=== PATIENT | female | born 2000 | race African-American/Black ===

== ENCOUNTER 2023-04-27 07:13 | Emergency (ER) | payer MEDICAID, OTHER ==
[~2023-04-27] VITALS: Ht 165.1 cm; Wt 63.0 kg
[~2023-04-27 07:13] MED LIST: IBUP-1525 MT; TOPUD MT
[2023-04-27 07:25] VITALS: BP 160/101; PULSE 116; RESP 20; TEMP 98.1; O2SAT 100
[2023-04-27 08:25] LABS: CLARITY URINE CLEAR (CLEAR); COLOR URINE YELLOW (YELLOW); GLUCOSE URINE NEGATIVE (NEGATIVE); KETONES URINE NEGATIVE (NEGATIVE); LEUKOCYTE ESTERASE URINE NEGATIVE (NEGATIVE); NITRITE URINE NEGATIVE (NEGATIVE); OCCULT BLOOD URINE 2+ (NEGATIVE); PROTEIN URINE NEGATIVE (NEGATIVE); SPECIFIC GRAVITY URINE 1.013 (1.005-1.030)
[2023-04-27] MEDS ORDERED: CEFTRIAXONE SODIUM 500 MG/VIAL IM ONE (08:45)
[2023-04-27] MEDS ORDERED: DOXY100C5 MT (08:52)
[2023-04-27 09:19] LABS: MUCUS URINE 2+ /lpf (< = 2+); SQUAMOUS EPITHELIAL CELL URINE 1+ /lpf (RARE/1+)
[2023-04-27 09:20] LABS: BACTERIA URINE TRACE; RBC URINE 0-2 /hpf (0-2); WBC URINE 0-2 /hpf (0-2)
== END 2023-04-27 09:38 | disposition home or self-care (01) ==
LOC: ER 07:43
DX: Z20.2 Contact with and (suspected) exposure to infections with a predominantly sexual mode of transmission (principal)
CPT/HCPCS: 99283; 81003; 81025; 96372; J0696

== ENCOUNTER 2023-06-05 14:37 | Emergency (ER) | payer MEDICAID ==
[~2023-06-05] VITALS: Ht 157.5 cm; Wt 65.0 kg
[~2023-06-05 14:37] MED LIST changes: +DOXY100C5 MT
[2023-06-05 14:41] VITALS: BP 109/64; TEMP 98.1; O2SAT 100
[2023-06-05] MEDS: FAMOTIDINE 20MG TABLET PO ONE (15:48)
[2023-06-05] MEDS: MAGNESIUM/ALUMINUM HYDROXIDE/SIMETHICONE 30ML UDC PO STA (15:48)
[2023-06-05] MEDS: ONDANSETRON 4MG ODT PO STA (15:48)
[2023-06-05 16:05] LABS: BASOPHILS % 0.8 % (0.0-2.0); HEMATOCRIT. 26.7 % (36.0-48.0); HEMOGLOBIN. 7.9 g/dL (12.0-16.0); LYMPHOCYTES % 10.8 % (20.0-50.0); MEAN CORPUSCULAR HEMOGLOBIN 18.9 pg (28.0-32.0); MEAN CORPUSCULAR HGB CONC 29.5 g/dL (31.0-37.0); MEAN CORPUSCULAR VOLUME 64.1 fL (81.0-99.0); MONOCYTES % 5.3 % (2.0-8.0); NEUTROPHILS % 83.1 % (40.0-76.0); PLATELET 301 x1000/uL (130-400); RED BLOOD CELL COUNT 4.17 mill/uL (4.2-5.4); RED CELL DISTRIBUTION WIDTH 19.4 % (11.6-14.6); WHITE BLOOD COUNT 7.3 x1000/uL (4.5-11.0)
[2023-06-05 16:10] LABS: ADD RBC MORPHOLOGY YES; ALANINE AMINOTRANSFERASE 20 IU/L (10-49); ALBUMIN 4.7 g/dL (3.2-4.8); ASPARTATE AMINOTRANSFERASE 63 IU/L (<34); BILIRUBIN TOTAL 0.5 mg/dL (0.1-1.0); CALCIUM 8.6 mg/dL (8.7-10.4); CARBON DIOXIDE 23 mEq/L (21-32); CHLORIDE 106 mEq/L (98-107); CREATININE 0.7 mg/dL (0.6-1.0); DIFFERENTIAL COMMENT 1; GLUCOSE 81 mg/dL (70-105); POTASSIUM 3.1 mEq/L (3.5-5.1); PROTEIN TOTAL 8.2 g/dL (6.0-8.3); SODIUM 139 mEq/L (136-145); UREA NITROGEN BLOOD 5 mg/dL (9-23)
[2023-06-05 16:17] LABS: HCG SCREEN NEGATIVE
[2023-06-05] MEDS: POTASSIUM CHLORIDE 20MEQ/PACKET PO ONE (16:33)
[2023-06-05 16:41] LABS: ANISOCYTOSIS 2+; HYPOCHROMASIA 3+; MICROCYTOSIS 3+; PLATELET ESTIMATE NORMAL
[2023-06-05 19:03] LABS: CLARITY URINE CLEAR (CLEAR); COLOR URINE YELLOW (YELLOW); GLUCOSE URINE NEGATIVE (NEGATIVE); KETONES URINE NEGATIVE (NEGATIVE); LEUKOCYTE ESTERASE URINE NEGATIVE (NEGATIVE); NITRITE URINE NEGATIVE (NEGATIVE); OCCULT BLOOD URINE TRACE (NEGATIVE); PH URINE 5.5 (4.5-8.0); PROTEIN URINE TRACE (NEGATIVE); SPECIFIC GRAVITY URINE 1.025 (1.005-1.030)
[2023-06-05 19:19] LABS: BACTERIA URINE NONE SEEN; RBC URINE 0-2 /hpf (0-2); SQUAMOUS EPITHELIAL CELL URINE RARE /lpf (RARE/1+); WBC URINE 0-2 /hpf (0-2)
[2023-06-05] MEDS ORDERED: ONDA4TAB11 PO (20:32)
[2023-06-05 21:35] VITALS: PULSE 92; RESP 16
[2023-06-05] MEDS ORDERED: IOHEXOL-300 100 ML BOTTLE ONE (23:11)
== END 2023-06-05 21:36 | disposition home or self-care (01) ==
LOC: ER 14:37
DX: R10.10 Upper abdominal pain, unspecified (principal); D64.9 Anemia, unspecified; E87.6 Hypokalemia
CPT/HCPCS: 99285; 74177; 76705; 80053; 81003; 81025; 84703; 83690; 85025; 36415; Q9967; Q0162

== ENCOUNTER 2023-10-27 00:16 | Emergency (ER) | payer MEDICAID ==
[~2023-10-27] VITALS: Ht 157.5 cm; Wt 69.0 kg
[~2023-10-27 00:16] MED LIST changes: +ONDA4TAB11 PO
[2023-10-27 00:35] VITALS: BP 125/77; PULSE 102; RESP 18; TEMP 98.6; O2SAT 99
[2023-10-27 01:20] LABS: CLARITY URINE TURBID (CLEAR); COLOR URINE ORANGE (YELLOW); GLUCOSE URINE NEGATIVE (NEGATIVE); KETONES URINE TRACE (NEGATIVE); LEUKOCYTE ESTERASE URINE 3+ (NEGATIVE); NITRITE URINE POSITIVE (NEGATIVE); OCCULT BLOOD URINE 3+ (NEGATIVE); PH URINE 6.5 (4.5-8.0); PROTEIN URINE 3+ (NEGATIVE); SPECIFIC GRAVITY URINE 1.026 (1.005-1.030)
[2023-10-27 01:35] LABS: BACTERIA URINE 3+; RBC URINE TNTC /hpf (0-2); SQUAMOUS EPITHELIAL CELL URINE 3+ /lpf (RARE/1+); WBC URINE TNTC /hpf (0-2)
[2023-10-27] MEDS: KETOROLAC 15MG/ML VIAL IM ONE (01:45)
[2023-10-27] MEDS: CEFTRIAXONE SODIUM 1G VIAL IM ONE (01:45)
[2023-10-27] MEDS ORDERED: CEFP200T13 MT (02:58)
== END 2023-10-27 04:29 | disposition home or self-care (01) ==
LOC: ER 00:16
DX: N12 Tubulo-interstitial nephritis, not specified as acute or chronic (principal); Z98.890 Other specified postprocedural states
CPT/HCPCS: 99284; 81003; 87086; 87186; 87077; 96372; J0696; J1885

== ENCOUNTER 2023-10-31 16:14 | Emergency (ER) | payer MEDICAID ==
[~2023-10-31] VITALS: Ht 157.5 cm; Wt 73.0 kg
[~2023-10-31 16:14] MED LIST changes: +CEFP200T13 MT
[2023-10-31 16:15] VITALS: BP 113/68; PULSE 95; RESP 18; TEMP 98; O2SAT 100
[2023-10-31] MEDS ORDERED: DICYCLOMINE 10 MG/5 ML ORAL SYR PO STA (17:14)
[2023-10-31] MEDS: FAMOTIDINE 20MG TABLET PO ONE (17:44)
[2023-10-31] MEDS: MAGNESIUM/ALUMINUM HYDROXIDE/SIMETHICONE 30ML UDC PO STA (17:44)
[2023-10-31] MEDS: ONDANSETRON 4MG ODT PO STA (17:44)
[2023-10-31] MEDS: KETOROLAC 30MG/ML VIAL IM STA (17:44)
[2023-10-31] MEDS: DICYCLOMINE HCL 10MG CAPSULE PO NR (17:46)
[2023-10-31 18:00] LABS: HEMATOCRIT. 32.8 % (36.0-48.0); HEMOGLOBIN. 9.6 g/dL (12.0-16.0); LYMPHOCYTES % 9.2 % (20.0-50.0); MEAN CORPUSCULAR HEMOGLOBIN 17.9 pg (28.0-32.0); MEAN CORPUSCULAR HGB CONC 29.3 g/dL (31.0-37.0); MEAN CORPUSCULAR VOLUME 60.9 fL (81.0-99.0); MEAN PLATELET VOLUME 8.8 fl (7.4-10.4); MONOCYTES % 6.4 % (2.0-8.0); NEUTROPHILS % 83.4 % (40.0-76.0); PLATELET 319 x1000/uL (130-400); RED BLOOD CELL COUNT 5.38 mill/uL (4.2-5.4); RED CELL DISTRIBUTION WIDTH 22.3 % (11.6-14.6); WHITE BLOOD COUNT 11.1 x1000/uL (4.5-11.0)
[2023-10-31 18:01] LABS: DIFFERENTIAL COMMENT 1
[2023-10-31 18:06] LABS: CHLORIDE 108 mEq/L (98-107); POTASSIUM 3.7 mEq/L (3.5-5.1); SODIUM 139 mEq/L (136-145)
[2023-10-31 18:07] LABS: CALCIUM 8.7 mg/dL (8.7-10.4); CARBON DIOXIDE 23 mEq/L (21-32)
[2023-10-31 18:10] LABS: HCG SCREEN NEGATIVE
[2023-10-31 18:12] LABS: CREATININE 0.7 mg/dL (0.6-1.0); GLUCOSE 88 mg/dL (70-105); UREA NITROGEN BLOOD 7 mg/dL (9-23)
[2023-10-31 18:13] LABS: ETHANOL BLOOD 70 mg/dL (<10)
[2023-10-31 18:14] LABS: ALANINE AMINOTRANSFERASE 32 IU/L (10-49); ALBUMIN 4.7 g/dL (3.2-4.8); ASPARTATE AMINOTRANSFERASE 56 IU/L (<34); BILIRUBIN DIRECT 0.2 mg/dL (<=3.0)
[2023-10-31 18:15] LABS: BILIRUBIN TOTAL 0.6 mg/dL (0.1-1.0); PROTEIN TOTAL 7.7 g/dL (6.0-8.3)
[2023-10-31] MEDS ORDERED: ONDA4TAB11 PO (18:43)
[2023-10-31] MEDS ORDERED: FAMO-135 MT (18:43)
== END 2023-10-31 19:07 | disposition home or self-care (01) ==
LOC: ER 16:14
DX: F10.129 Alcohol abuse with intoxication, unspecified (principal); K29.70 Gastritis, unspecified, without bleeding; Z98.890 Other specified postprocedural states; Y90.3 Blood alcohol level of 60-79 mg/100 ml
CPT/HCPCS: 80076; 80048; 81025; 80320; 84703; 83690; 85025; 36415; 96372; 99284; Q0162; J1885; G0480

== ENCOUNTER 2024-04-17 14:38 | Emergency (ER) | payer MEDICAID ==
[~2024-04-17] VITALS: Ht 157.5 cm; Wt 54.4 kg
[~2024-04-17 14:38] MED LIST changes: +FAMO-135 MT; +ONDA-239 PO; -ONDA4TAB11 PO
[2024-04-17 14:50] VITALS: BP 140/87; RESP 16; TEMP 98; O2SAT 100
[2024-04-17 14:54] VITALS: PULSE 136; O2SAT 99
[2024-04-17 16:16] LABS: CLARITY URINE CLEAR (CLEAR); COLOR URINE YELLOW (YELLOW); GLUCOSE URINE NEGATIVE (NEGATIVE); KETONES URINE NEGATIVE (NEGATIVE); LEUKOCYTE ESTERASE URINE NEGATIVE (NEGATIVE); NITRITE URINE NEGATIVE (NEGATIVE); OCCULT BLOOD URINE NEGATIVE (NEGATIVE); PH URINE 8.5 (4.5-8.0); PROTEIN URINE NEGATIVE (NEGATIVE); SPECIFIC GRAVITY URINE 1.019 (1.005-1.030)
[2024-04-17] MEDS ORDERED: FLUC50TA MT (16:20)
[2024-04-17] MEDS ORDERED: DOXY150T9 MT (16:36)
[2024-04-17] MEDS: LIDOCAINE HCL 1% 20ML VIAL INFIL ONE (16:45)
[2024-04-17] MEDS: CEFTRIAXONE SODIUM 500MG VIAL IM ONE (16:45)
== END 2024-04-17 16:46 | disposition home or self-care (01) ==
LOC: ER 14:38
DX: S01.81XD Laceration without foreign body of other part of head, subsequent encounter (principal); Z11.3 Encounter for screening for infections with a predominantly sexual mode of transmission; X58.XXXD Exposure to other specified factors, subsequent encounter
CPT/HCPCS: 87491; 87591; 81003; 86592; 96372; 99283; J0696; J3490; Z7610